=== PATIENT | male | born 1950 | race Caucasian/White ===

== ENCOUNTER 2021-01-02 13:37 | Emergency (ER) | payer OTHER, MEDICARE, BC ==
[2021-01-02 14:16] LABS: CHLORIDE,CL 102 mmol/L (98-107); SODIUM,NA 139 mmol/L (136-145)
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
[2021-01-02 14:18] LABS: ANION GAP 12.7 mmol/L (5-15)
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
[2021-01-02] MEDS ORDERED: fentaNYL 50 MCG/ML SDV IVPUSH ONE (14:21)
[2021-01-02] MEDS ORDERED: Acetaminophen 325 MG Tab PO ONE (14:21)
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
[2021-01-02 14:33] LABS: PTT,PARTIAL THROMBOPLSTIN TIME 21.9 SEC (25.6-32.8)
== END 2021-01-02 15:37 | disposition home or self-care (01) ==
LOC: VM.ED 13:37
DX: S30.1XXA Contusion of abdominal wall, initial encounter (principal); M54.5 Low back pain; M25.60 Stiffness of unspecified joint, not elsewhere classified; Z95.0 Presence of cardiac pacemaker; Z79.02 Long term (current) use of antithrombotics/antiplatelets; Z98.890 Other specified postprocedural states; V49.40XA Driver injured in collision with unspecified motor vehicles in traffic accident, initial encounter; Y92.410 Unspecified street and highway as the place of occurrence of the external cause
CPT/HCPCS: 36415; 71045; 72170; 80048; 85025; 85610; 85730; 93005; 96374; 99283; 99284-25; A9270-GY; J3010